=== PATIENT | female | born 1955 | race African-American/Black ===

== ENCOUNTER 2016-12-26 11:20 | Emergency (ER) | payer OTHER ==
[~2016-12-26] VITALS: Ht 160 cm; Wt 55.0 kg
[2016-12-26] MEDS ORDERED: NALOXONE HCL 1 MG/ML 2ML VIAL ONE ×2 (11:30→11:37)
[2016-12-26] MEDS ORDERED: NALOXONE HCL 1 MG/ML 2ML VIAL IV ONE ×2 (11:30→12:30)
[2016-12-26 12:17] LABS: MEAN CORPUSCULAR HEMOGLOBIN 28.7 pg (28.0-32.0); MEAN CORPUSCULAR VOLUME 87.1 fL (81.0-99.0); MEAN PLATELET VOLUME 7.6 fl (7.4-10.4); PLATELET 157 x1000/uL (130-400); RED BLOOD CELL COUNT 2.04 mill/uL (4.2-5.4); RED CELL DISTRIBUTION WIDTH 16.2 % (11.6-14.6)
[2016-12-26 12:25] LABS: INR 1.2; PARTIAL THROMBOPLASTIN TIME 25.4 sec (23.4-31.0); PROTHROMBIN TIME 12.6 sec (9.4-11.6)
[2016-12-26 12:30] LABS: HEMOGLOBIN. 5.9 g/dL (12.0-16.0)
[2016-12-26] MEDS ORDERED: LORAZEPAM 2MG/ML CPJ IV ONE (12:30)
[2016-12-26 12:31] LABS: HEMATOCRIT. 17.8 % (36.0-48.0)
[2016-12-26 12:35] LABS: CARBON DIOXIDE 24 mEq/L (21-32); CHLORIDE 99 mEq/L (98-107); TROPONIN I 0.18 ng/mL (0.00-0.04)
[2016-12-26 13:00] LABS: PLATELET ESTIMATE NORMAL
[2016-12-26 13:02] LABS: NUCLEATED RED BLOOD CELLS 80 /100 WBC
[2016-12-26 13:42] LABS: *AMPHETAMINES SCREEN URINE NEGATIVE (NEGATIVE); *BARBITURATES SCREEN URINE NEGATIVE (NEGATIVE); *BENZODIAZEPINES SCREEN URINE NEGATIVE (NEGATIVE); *COCAINE SCREEN URINE NEGATIVE (NEGATIVE); CANNABINOID URINE SCREEN NEGATIVE (NEGATIVE); METHADONE URINE SCREEN NEGATIVE (NEGATIVE); OPIATES URINE SCREEN PRESUMTIVE POSITIVE (NEGATIVE); PHENCYCLIDINE URINE SCREEN NEGATIVE (NEGATIVE)
[2016-12-26] MEDS ORDERED: KETOROLAC 15MG/ML VIAL IV ONE (15:45)
[2016-12-26 17:07] VITALS: BP 112/54
== END 2016-12-26 18:03 | disposition short-term general hospital (02) ==
LOC: ER 11:20
DX: T40.2X1A Poisoning by other opioids, accidental (unintentional), initial encounter (principal); J96.00 Acute respiratory failure, unspecified whether with hypoxia or hypercapnia; F17.200 Nicotine dependence, unspecified, uncomplicated; Z66 Do not resuscitate; Z85.118 Personal history of other malignant neoplasm of bronchus and lung; Y92.89 Other specified places as the place of occurrence of the external cause
CPT/HCPCS: 36415; 71010; 80053; 80305; 82962; 83690; 84484; 85025; 85610; 85730; 93005; 96374; 96375; 96376; 99291; J1885; J2310; A4315